=== PATIENT | male | born 1950 | race Caucasian/White ===

== ENCOUNTER 2017-12-20 15:50 | Emergency (ER) | payer OTHER ==
[2017-12-20 16:00] VITALS: BMI 34.7
[2017-12-20] MEDS ORDERED: CATAPRES TAB 0.2 MG PO ONE (16:04)
--- NOTE | 2017-12-20 16:05 | DR.EXTPAIN ---
HPI - Time seen Time seen: 16:05 - PCP Primary Care Physician: PT HAS NO MD IN [place]OWN - Complaint/Symptoms Chief Complaint Doctor Comments: Patient presents with tingling/numbness of left forearm/digits for few weeks. Has been on tramadol,muscle relaxants w/o much improvement. Denies a history of trauma Chief Complaint:: PT C/O LEFT SHOULDER PAIN ON 12/09/17 THAT HE THINKS IT MAY BE A NERVE THAT HIS PRIMARY MD TOLD HIM THAT .. Self Treatment fo Chief Complaint: PT C/O THAT HIS PAIN IS ACHING ,,,, ,PT TOOK HIS BP MEDS THIS AM AND A MUSCLE RELAXER ..PT WAS PRESRIBED MUSCLE RELAXERS.. - Source History Provided: Patient - Mode of arrival Mode of Arrival: Ambulatory - Timing Onset of Chief Complaint: 12/19/17 PMH - PMH Past Medical History: Yes Past Medical History: Hypertension Past Medical History Comment: EMPHSEMA .. Past Surgical History: Yes Past Surgical History Comment: FEET SURGERY - Family History History of Family Medical Conditions: No - Social History Does patient currently use any type of tobacco product: No Have you used tobacco products in the last 12 months: No Type of Tobacco Use: None Does any household member use tobacco: No Alcohol Use: None Do you use any recreational Drugs:: No Lives With: Family Lives Where: Home - infectious screening In the last 2 months have you had wt loss of >10#?: NO Have you had fever, night sweats or hemotysis?: No Have you traveled outside the country in the last 6 months?: No Isolation: Standard ROS - Review of Systems Eyes: No Symptoms Reported ENTM: No Symptoms Reported Respiratoy: No Symptoms Reported Cardiovascular: No Symptoms Reported Gastrointestinal/Abdominal: No Symptoms Reported Genitourinary: No Symptoms Reported Neurological: No Symptoms Reported Musculoskeletal: Arm (left), Hand, Other (left shoulder) Integumentary: No Symptoms Reported Hematologic/Lymphatic: No Symptoms Reported Endocrine: No Symptoms Reported Psychiatric: No Symptoms Reported All Other Systems: Reviewed and Negative PE - Vital Signs Vitals: Temperature 98.2 F Pulse Rate [Left Radial] 80 Pulse Rate 92 Respiratory Rate 18 Blood Pressure [Left Arm] 182/91 Blood Pressure 208/77 O2 Sat by Pulse Oximetry 98 - General Limitations: No Limitations General Appearance: Alert, In No Apparent Distress - Head Head Exam: Normal Inspection, Atraumatic - Eyes Eye exam: Normal Appearance, PERRL, EOMI - ENT ENT Exam: Normal Exam - Neck Neck Exam: Normal Inspection, Full ROM - Chest Chest Inspection: Normal Inspection - Respiratory Respiratory Exam: Normal Lung Sounds Bilat Respiratory Exam: Bilateral Clear to Auscultation - Cardiovascular Cardiovascular Exam: Regular Rate, Normal Rhythm - Abdominal Exam Abdominal Exam: Normal Inspection Abdominal Tenderness: negative: RUQ, RLQ, LUQ, LLQ, Epigastrium, Suprapubic, Diffuse, Mild, Moderate, Severe, Other - Extremities Extremities Exam: Normal Inspection, Full ROM - Upper Extremities Shoulder Exam: Normal Inspection Arm Exam: Normal Inspection Elbow Exam: Normal Inspection Forearm Exam: Normal Inspection Hand Exam: Normal Inspection Neuromotor Exam: Normal Exam Neurosensory Exam: Normal Exam Hand Tendon Exam: Flexor Digitorium Profundus (Location) Upper Ext. Vascular Exam: Capillary Refill - Lower Extremities Hip/Pelvis Exam: Normal Inspection Upper Leg Exam: Normal Inspection Knee Exam: Normal Inspection Lower Leg Exam: Normal Inspection Ankle Exam: Normal Inspection Foot/Toe Exam: Normal Inspection Neurovascular/Tendon Exam: Normal Capillary Refill Gait Exam: Observed and Normal - Back Back Exam: Normal Inspection, Full ROM - Neurological Neurological Exam: Alert, Oriented X3, CN II-XII Intact - Psychiatric Psychiatric Exam: Normal Affect - Skin Skin Exam: Warm, Dry Type of Lesion: Rash ROR - XRAY XRAY Interpreted by: Radiologist (Cervical spine: The C7 vertebral body is not visualized on the lateral view. Multilevel spondylosis and degenerative disc space narrowing is present. There is facet arthropqathy and uncovertebral spurring at multiple leevels. The odontoid process appears intact. The prevertebral soft tissues are normal. The visualized lung apices are clear. Impression: Multilevel cervical degenerative changes as described. 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
[2017-12-20] MEDS ORDERED: DILAUDID INJ IM ONE (16:15)
[2017-12-20] MEDS ORDERED: DILAUDID INJ ONE (16:18)
[2017-12-20] MEDS ORDERED: CATAPRES TAB 0.2 MG ONE (16:18)
--- NOTE | 2017-12-20 16:48 | RAD ---
HISTORY: Left shoulder, forearm pain and tingling Study: Three-view cervical spine Comparison: None Findings: The C7 vertebral body is not visualized on the lateral view. Multilevel spondylosis and degenerative disc space narrowing is present. There is facet arthropathy and uncovertebral spurring at multiple le vels. The odontoid process appears intact. The prevertebral soft tissues are normal. The visualized l britton apices are clear. IMPRESSION: 1. Multilevel cervical degenerative changes as described. Reported By:
[2017-12-20 17:32] VITALS: BP 155/72
== END 2017-12-20 17:08 | disposition home or self-care (01) ==
LOC: ER 15:50 → EDSEX 15:50 → ER 17:08
DX: M51.36 Other intervertebral disc degeneration, lumbar region (principal); M47.22 Other spondylosis with radiculopathy, cervical region
CPT/HCPCS: 72040; 96372; 99282; J1170